=== PATIENT | female | born 1950 | race Caucasian/White ===

== ENCOUNTER 2022-06-27 15:33 | Inpatient (IN) | payer MEDICARE, OTHER ==
[~2022-06-27] VITALS: Ht 170.2 cm; Wt 66.2 kg
[~2022-06-27 15:33] MED LIST: ASPI81CH PO; ATOR40TA PO; CLOP75 PO; CONEST1.25 PO; HYDACE10B; LEVFLO500 PO; METO25 PO
[2022-06-27 15:52] LABS: Hematocrit 40.2 % (33.0-51.0); Hemoglobin 14.2 g/dL (11.5-16.0); Mean Corpuscular HGB 31.9 pg (26.0-34.0); Mean Corpuscular HGB Conc 35.3 g/dL (31.5-36.5); Mean Corpuscular Volume 90 fL (80-100); Mean Platelet Volume 9.3 fL (9.1-12.4); Platelet Count 425 K/mm3 (150-400); RDW Standard Deviation 42.8 fL (35.1-46.3); Red Blood Cell Count 4.45 M/mm3 (3.80-5.20); White Blood Cell Count 14.12 K/mm3 (4.00-11.30)
[2022-06-27 16:08] LABS: International Normalized Ratio 0.97; Prothrombin Time Results 10.2 Sec (9.7-11.5)
[2022-06-27 16:14] LABS: Anion Gap 5 mmol/L (6-16); Blood Urea Nitrogen 10 mg/dL (8-24); Bun/Creatinine Ratio 12.5 (12.0-20.0); CHOL/HDL RATIO 3.1; CO2, Blood 26 mmol/L (21-32); CPK Creatine Kinase 45 U/L (26-193); Calcium, Blood 8.4 mg/dL (8.5-10.1); Chloride, Blood 103 mmol/L (98-108); Cholesterol 152 mg/dL (50-200); Glomerular Filtration Rate 78 (60-); Glucose, Blood 146 mg/dL (70-99); HDL Cholesterol 49 mg/dL (>39); LDL/HDL RATIO 1.5; Low Density Lipoprotein Chol 73 mg/dL (0-110); Magnesium, Blood 2.2 mg/dL (1.6-2.4); Potassium, Blood 3.4 mmol/L (3.5-5.5); Sodium, Blood 134 mmol/L (136-145); Triglycerides 149 mg/dL (30-160); Very Low Density Lipoprot Chol 29 mg/dL (6-32)
[2022-06-27 16:20] LABS: Creatine Kinase MB 1.1 ng/mL (0.0-3.6); Creatine Kinase MB Index 2.4 (0.0-4.0)
--- NOTE | 2022-06-27 19:31 | NUR ---
PT ARRIVED TO ICU AT 1750 TRANSPORTED VIA BED FROM [facility] AFTER PRESENTING TO THE ER WITH STEMI. PT RECEIVED 1 STENT TO THE MID RCA. HAD TORSADES REQUIRING SHOCK AT 200j X2 AND THEN A BRIEF EPISODE OF 3RD DEGREE HEART BLOCK REQUIRING ATROPINE 0.5MG X1. PT ARRIVES IN A SINUS RHYTHM. NEURO: A/O X4 CARDIAC: SR, BP SUPPORTED BY LEVOPHED AT 2. EKG DONE 1 HOUR POST INTERVENTION. REVIEWED BY DR. UGALDE. RESP: LUNGS DIMINISHED AT BILAT BASES, CURRENT EVERY DAY SMOKER, HAS COPD, ON 2LNC, ENCOURAGED DEEP BREATHING ABLE. GI: CARDIAC DIET ORDERED, DENIES NAUSEA CURRENTLY BUT HAD NAUSEA POST PROCEDURE AND HAS HAD 8MG ZOFRAN IN ACCOUNTS EXECUTIVE. SIPS OF WATER GIVEN, PT SWALLOWS WELL. : VOIDS, 100ML VIA BEDPAN UPON ARRIVAL, PLACED PUREWICK AND EXPLAINED TO PT, SHE VERBALIZES UNDERSTANDING. PUREWICK TO LOW CONTINUOUS SUCTION. SKIN: DUSKY FINGERS (NORMAL PER PT). SLIGHTLY UNKEMPT. RIGHT FEM ANGIOSEAL OOZING, SITE SOFT AND NON-TENDER. NO HEMATOMA NOTED. DR. UGALDE AWARE OF OOZING. IV: PIV INFUSING LEVOPHED AND ANGIOMAX. ANGIOMAX RUNNING AT 1/[address] UGALDE AND IS TO BE D/C'D AT 1930. NS INFUSING AT 125ML/HR. ACT REPORTEDLY >500 PRIOR TO LEAVING ACCOUNTS EXECUTIVE. MULTIPLE FAMILY MEMBERS AT BEDSIDE. EX HERE, PT STATES IT IS OK THAT HE HAVE INFORMATION BUT IF EMERGENCY DECISIONS NEED TO BE MADE IN THE EVENT SHE CANNOT MAKE THEM, SHE WISHES THE GRANDCHILDREN TO BE COLLECTIVELY MAKING THOSE DECISIONS. GRANDCHILDREN AWARE AND ARE AGREEABLE. PT'S DAUGHTER IN 2021 AND SHE HAS NO LIVING SIBLINGS. PT VERBALIZES DESIRE TO BE FULL CODE.
--- NOTE | 2022-06-27 19:34 | NUR ---
ASSUME CARE PATIENT A&O, FAMILY AT BEDSIDE
[2022-06-27] MEDS ORDERED: LOSA25 PO (19:42)
[2022-06-27] MEDS ORDERED: HYDCHL25 PO (19:43)
[2022-06-27] MEDS ORDERED: B COMPLEX WITH1 EACH PO (19:44)
[2022-06-27] MEDS ORDERED: ALBU90OI INH (19:44)
[2022-06-27] MEDS ORDERED: IRON18 MG PO (19:45)
[2022-06-27 20:04] LABS: CHOL/HDL RATIO 2.7; Cholesterol 130 mg/dL (50-200); HDL Cholesterol 49 mg/dL (>39); LDL/HDL RATIO 1.4; Low Density Lipoprotein Chol 67 mg/dL (0-110); Triglycerides 72 mg/dL (30-160); Very Low Density Lipoprot Chol 14 mg/dL (6-32)
[2022-06-27] MEDS ORDERED: CONEST.625 PO (20:58)
--- NOTE | 2022-06-27 21:21 | NUR ---
CHEST TIGHTNESS REPORTED TO DR UGALDE, TROP [id number], AND CHEST TIGHTNESS. EKG DONE, NO CHANGE FROM 1830 EKG. SEE NEW ORDERS. LEVOPHED DOWN TO 0.5 MCQ/MIN
[2022-06-28 03:19] LABS: BASOPHILS ABSOLUTE AUTO 0.06 K/mm3 (0.00-0.23); BASOPHILS PERCENT AUTO 0 % (0-2); EOSINOPHILS ABSOLUTE AUTO 0.03 K/mm3 (0.00-0.68); EOSINOPHILS PERCENT AUTO 0 % (0-6); Hemoglobin 13.1 g/dL (11.5-16.0); IMMATURE GRAN ABSOLUTE AUTO 0.04 K/mm3 (0.00-0.10); IMMATURE GRAN PERCENT AUTO 0 % (0-1); LYMPHOCYTES ABSOLUTE AUTO 2.02 K/mm3 (0.84-5.20); LYMPHOCYTES PERCENT AUTO 13 % (21-46); MONOCYTES ABSOLUTE AUTO 1.82 K/mm3 (0.16-1.47); MONOCYTES PERCENT AUTO 12 % (4-13); Mean Corpuscular HGB 31.7 pg (26.0-34.0); Mean Corpuscular HGB Conc 35.4 g/dL (31.5-36.5); Mean Corpuscular Volume 90 fL (80-100); Mean Platelet Volume 9.2 fL (9.1-12.4); NEUTROPHILS ABSOLUTE AUTO 11.86 K/mm3 (1.96-9.15); NEUTROPHILS PERCENT AUTO 75 % (41-73); Platelet Count 359 K/mm3 (150-400); RDW Coefficient Variation 13.1 % (11.7-14.2); RDW Standard Deviation 42.9 fL (35.1-46.3); Red Blood Cell Count 4.13 M/mm3 (3.80-5.20); White Blood Cell Count 15.83 K/mm3 (4.00-11.30)
[2022-06-28 03:34] LABS: Bun/Creatinine Ratio 12.5 (12.0-20.0); Calcium, Blood 7.8 mg/dL (8.5-10.1); Creatinine, Blood 0.64 mg/dL (0.40-1.00); Potassium, Blood 3.4 mmol/L (3.5-5.5)
--- NOTE | 2022-06-28 05:27 | NUR ---
SHIFT SUMMARY PATIENT AWAKE MOST OF NIGHT. ADJUST SELF IN BED. R GROIN SITE STABLE. SALINE LOCKED. MEDICATED FOR ANXIETY/CHEST TIGHTNESS/INDIGESTION. EKG NO CHANGES. OFF LEVOPHED. URINE OUTPUT ADEQUATE. VSS ON O2 @ 6LNC UNABLE TO WEAN. REPORT TO ONCOMINIG RN.
--- NOTE | 2022-06-28 10:40 | NUR ---
Spiritual care visit conducted. Patient is lying in bed and alert. Patient's SO, Ward is bedside. Patient tells me about the medical evets that led to her transport and then the events and surgery that occurred upon arrival to the hospital. Patient talks about her Hinduism shukri and how her shukri has helped her overcome challenging trials in the past. I provide prayer, therapeutic listening and companionship as I assist patient deal with the fears and worries associated with her traumatic medical events. I will cotninue to remain available to patient and family.
--- NOTE | 2022-06-28 13:13 | NUR ---
PROVIDER UPDATE: Pt complaining of back pain and is requesting tylenol. Dr Turner notified.
--- NOTE | 2022-06-28 16:54 | NUR ---
SHIFT SUMMARY PT REMAINS A/O X4, SINUS RHYTHM, FREQ PVC'S AT TIMES, ASYMPTOMATIC, HR 80'S. BP WNL. ON 5L NC TO MAINTAIN O2 SAT > 92%, OCCASIONAL COUGH, NON-PRODUCTIVE. LUNGS COARSE AT TIMES, CLEARS WITH COUGH, DIMISHED IN BILATERAL BASES. NAUSEA THIS AM RELIEVED BY PRN ZOFRAN. POOR APPETITE BUT ATTEMPTING TO EAT A LITTLE AT EACH MEAL. VOIDS USING BSC, CLEAR YELLOW URINE. SKIN INTACT, DRY AND FLAKY. RIGHT FEM ACCESS SITE WITH DRY BLOODY DRAINAIGE ON DRESSING, HAS NOT INCREASED, SITE SOFT, NON-TENDER. BILAT PIV, BOTH SL, BOTH FLUSH WELL. MULTIPLE VISITORS TO BEDSIDE TODAY, ALL UPDATED ON PT CONDITION AND POC. PT HOPES TO BE D/C HOME TOMORROW. REPORT CALLED TO ELLA REYES TRANSFERRED TO PCU 19 VIA W/C ON 5L NC. ALL BELONGINGS SENT WITH PT.
--- NOTE | 2022-06-28 22:18 | NUR ---
ASSUMPTION OF CARE THIS RN ASSUMED CARE OF PATIENT AT 1900. REPORT TAKEN FROM ERIC BRADEN. PATIENT SHOWING NSR ON MONITOR WITH OCCASIONAL PVC'S, HR 70-80'S. BP STABLE. AFEBRILE. SPO2 >90% ON 5L VIA NC. THIS RN ATTEMPTED TO TITRATE PATIENT DOWN AT BEGINNING OF SHIFT, HOWEVER PATIENT DESATTED TO 86-87%. MD UGALDE TO BEDSIDE AFTER SHIFT CHANGE TO DISCUSS PLAN OF CARE AND NEW MEDICATIONS WITH PATIENT. MD UGALDE ASSESSED SITE WITH VERBAL ORDERS FOR THIS RN TO CHANGE DRESSING. THIS RN REMOVED AND REPLACED TEGADERM, AND CLEANED SITE WITH CHLORAHEXADINE. NO BLEEDING/OOZING NOTED AT RIGHT FEMORAL SITE. SMALL AMOUNT OF BRUISING TO RIGHT OF PUNCTURE SITE. NO FURTHER COMPLICATIONS NOTED. PATIENT DENIED TENDERNESS WITH PALPATION. PATIENT APPEARS ANXIOUS WITH TANGENTIAL SPEECH. PATIENT REQUIRING CONTINUAL EDUCATION REINFORCEMENT ABOUT MEDICATIONS, PLAN OF CARE, AND SMOKING CESSATION. PATIENT VERBALIZES UNDERSTANDING, THIS RN WILL CONTINUE TO PROVIDE EDUCATION AND GIVE PATIENT PRINTED INFORMATION ABOUT EDUCATION. PATIENT SBA/INDEPENDENT WITH ADLS. CALLS APPROPRIATELY. BED IN LOWEST POSITION AND CALL LIGHT WITHIN REACH.
[2022-06-29 04:24] LABS: Calcium, Blood 8.2 mg/dL (8.5-10.1); Creatinine, Blood 0.61 mg/dL (0.40-1.00); Potassium, Blood 3.8 mmol/L (3.5-5.5)
--- NOTE | 2022-06-29 04:30 | NUR ---
SHIFT SUMMARY NO ACUTE CHANGES OVERNIGHT. PATIENT DENIES CHEST PAIN/PRESSURE BUT CONTINUES TO ENDORSE OCCASIONAL TIGHTNESS WITH BREATHING. PATIENT ON 6L VIA NC CURRENTLY WHILE LYING FLAT AND SLEEPING WITH SPO2 >90%. BP STABLE WITH SBP 110-120 AT THIS TIME. SR WITH PVC'S NOTED ON TELE WITH HR 60-70'S. PATIENT IS ABLE TO MAKE NEEDS KNOWN. THIS RN CONTINUED TO EDUCATE THROUGHOUT THE NIGHT REGARDING SMOKING CESSATION AND CURRENT DISEASE PROCESSES, HOWEVER, PATIENT APPEARS UNINTERESTED IN EDUCATION. PRINTED INFORMATION PACKETS GIVEN ABOUT QUITING SMOKING AND CHANTIX. PATIENT'S RIGHT FEMORAL SITE DRESSING C/D/I, SMALL EXCCYMOSIS/HEMATOMA NOTED WITHOUT CHANGES OVERNIGHT; NO BLEEDING/OOZING. SLIGHT TENDERNESS WITH PALPATION. PATIENT INDEPENDENT WITH ADL'S. CALLING APPROPRIATELY AND ABLE TO MAKE NEEDS KNOWN. BED IN LOWEST POSITION AND CALL LIGHT WITHIN REACH. THIS RN WILL CONTINUE TO MONITOR UNTIL SHIFT CHANGE AT 0700.
--- NOTE | 2022-06-29 08:52 | NUR ---
Spiritual care visit. I met with patient's SO Ward in the hallway. He talks about how emotionally and physically draining it is to have a loved one in the hospital. He shares his thoughts about feeling so helpless he is to fix her and the situation. I provide anxiety containment and emotional support. Ward responded well and showed signs of peace about his role and the significance of his presence.
--- NOTE | 2022-06-29 10:46 | NUR ---
CARE ASSUMPTION THUS RN ASSUMED CARE AT 0700. VSS. SPO2 >90% ON 6L. THIS RN TITRATED TO 4L AT THE START OF MY SHIFT. PATIENT IS ALERT AND ORIENTED X4. PATIENT REPORTS NO PAIN. PATIENT REPORTS NO SHORTNESS OF BREATH. PATIENT REPORTS NO CHEST PAIN/PRESSURE. SEE SHIFT ASSESSMENT FOR FURTHER DETAILS. PATIENT RIGHT FEMORAL SITE IS CLEAN DRY AND INTACT. SMALL BRUISING AND FIRM SPOT. PATIENT EDUCATED ON SMOKING CESSATION. PATIENT UP IN ROOM AND PERFORMS OWN ADLS INDEPDENTLY. MD UGALDE AND MD GLASER TO SEE PATIENT TODAY. PLAN OF CARE IS UP TO DATE. CALL LIGHT WITHIN REACH.
--- NOTE | 2022-06-29 12:56 | NUR ---
UPDATE-INCREASE HEART RATE THE PATIENT SIGNIFCANT OTHER CAME OUT OF THE ROOM YELLING "SHES HAVING A HEART ATTACK" AT APPROX 1140 THIS RN AND PRESTON Fitzgerald RN RAN INTO THE ROOM. THE PATIENT WAS SITTING UP IN BED AND TALKING AND TELE MONITOR READING AT 154. PATIENT DENIED ANY CHEST PAIN/PRESSURE. PATIENT BLOOD PRESSURE WAS SLIGHTLY ELEVATED FROM EARLIER VITALS, SEE VITAL SIGN SECTION. SPO2 >90% ON 4L NC. PATIENT STATED "I FELT SWEATY AND THEN DIZZY AND THEN EVERYTHING WENT BLACK". PER THE SIGNIFCANT OTHER, HE STATED "HER EYES ROLLED INTO THE BACK OF HER HEAD AND SHE LOOKED LIKE SHE WAS HAVING A SEUIZURE.". EVERTON BRADEN CALLED MD UGALDE AND MD GLASER AND MADE THEM BOTH AWARE OF THE EVENT. PER TELE READING IT LOOKED LIKE VTACH. SEE STRIP IN CHART. PATIENT HAS HAD SEVERAL PVCS SINCE AND 1-3 BEAT OF VTACH. MD UGALDE STARTED THE PATIENT AMNIO DRIP. AMNIO DRIP IS INFUSING. SEE EMAR FOR FURTHER DETIALS.
--- NOTE | 2022-06-29 18:10 | NUR ---
SHIFT SUMMARY PATIENT NEURO REMAINS INTACT. VSS. NO ACUTE CHANGES. SEE PREVIOUS NOTES. PATIENT HAD MULTIPLE FAMILY MEMBERS IN TO VISIT THROUGHOUT THE DAY. PATIENT USES CALL LIGHT APPORPIATELY AND IS ABLE TO MAKE NEEDS KNOWN. CALL LIGHT WITHIN REACH AND BED IN LOWEST POSITION.
--- NOTE | 2022-06-30 04:58 | NUR ---
END OF SHIFT SUMMARY NO ARRYTHMIAS OVERNIGHT, PT RESTED WELL, UP TO BSC INDEPENDENTLY, AMIO GTT AT 0.5, VSS, AFEBRILE, NO ISSUES
--- NOTE | 2022-06-30 10:36 | NUR ---
CARE ASSUMPTION THIS RN ASSUMED CARE AT 0700. VSS. SPO2 >90% ON 3L NC. PATIENT IS ALERT AND ORIENTED X4. PATIENT REPORTS NO PAIN. PATIENT REPORTS NO SHORTNESS OF BREATH. PATIENT REPORTS NO CHEST PAIN/PRESSURE. PATIENT IS ABLE TO MAKE NEEDS KNOWN. PATIENT UPDATED ON PLAN OF CARE. SEE SHIFT ASSESSMENT. PATIENT IS INDEPDENT BUT IS EDUCATED ON USING CALL LIGHT BEFORE GETTING UP FOR SAFETY. CALL LIGHT WITHIN REACH
--- NOTE | 2022-06-30 11:15 | NUR ---
UPDATE MD UGALDE IN TO SEE PATIENT. PATIENT UPDATED ON ZOLL LIFE VEST. THIS RN EDUCATED THE PATIENT ON THE ZOLL VEST. PATIENT AND PATIENT SIGNIFICANT OTHER VERBALIZED UNDERSTANDING.
--- NOTE | 2022-06-30 17:51 | NUR ---
SHIFT SUMMARY PATIENT NUERO REMAINS INTACT. VSS. NO ACUTE CHANGES THIS SHIFT. PATIENT FAMILY HAS BEEN AT BEDSIDE DURING THIS RN SHIFT AND UPDATED ON PLAN OF CARE. CALL LIGHT WITHIN REACH.
--- NOTE | 2022-07-01 00:26 | NUR ---
0000-PT WOKE UP NAUSEATED AND DID EVENTUALLY VOMIT APPROX 100CC OF DARK ORANGE COLORED LIQUID WITH SOLID BITS OF FOOD IN IT, PT DESATTED TO 84, DIAPHORETIC AND DIZZY, DR SANTOS CALLED FOR ZOFRAN PRN, NO ECTOPY OR CARDIAC CHANGES NOTED, AFEBRILE, VSS ASIDE FROM NEEDING O2 INCREASED TO 4LPM TO MAINTAIN SAT OF 92, PT FULLY UPRIGHT WHEN VOMITTING OCCURED SO ASPIRATION VERY UNLIKELY
[2022-07-01 04:42] LABS: Bun/Creatinine Ratio 17.2 (12.0-20.0); Calcium, Blood 8.2 mg/dL (8.5-10.1); Creatinine, Blood 0.82 mg/dL (0.40-1.00); Potassium, Blood 3.5 mmol/L (3.5-5.5)
--- NOTE | 2022-07-01 05:16 | NUR ---
END OF SHIFT SOFT B/P, SB ON TELE, ONE EPISODE N/V, ZOFRAN ORDERED, O2 INCREASED TO 4LPM NC, WILL CONTINUE TO MONITOR UNTIL SHIFT CHANGE
--- NOTE | 2022-07-01 17:51 | NUR ---
SHIFT SUMMARY THIS RN ASSUMED CARE AT 0700. VSS. SPO2 >90% ON 4L NC. PATIENT IS ALERT AND ORIENTED X4 AND NEURO REMAINS UNCHANGED THIS SHIFT. PATIENT REPORTS DISCOMFORT IN BACK AND RATED IT AT A 4 ON A SCALE FROM 0-10, WITH 10 BEING THE WORST. PATIENT RECEIVED MED PER EMAR. SEE EMAR. PATIENT REPORTS NO SHORTNESS OF BREATH. PATIENT REPORTS NO CHEST PAIN/PRESSURE. SEE SHIFT ASSESSMENT FOR FURTHER DETIALS. MD UGALDE IN TO SEE PATIENT. PLAN IS FOR PATIENT TO HAVE AN ANGIO IN THE MORNING. NPO AT 0000. SEE ORDERS. PLAN OF CARE IS UP TO DATE. NO ACUTE CHANGES. CALL LIGHT WITHIN REACH AND BED IN LOWEST POSITION.
[2022-07-02 04:24] LABS: Bun/Creatinine Ratio 17.7 (12.0-20.0); Calcium, Blood 8.4 mg/dL (8.5-10.1); Creatinine, Blood 0.74 mg/dL (0.40-1.00); Potassium, Blood 3.5 mmol/L (3.5-5.5)
--- NOTE | 2022-07-02 06:17 | NUR ---
PT SLEPT WELL WITH PRN XANAX, MELATONIN AND TYLENOL, SB IN 40'S-50'S, 4LPM NC, AFEBRILE, PT REFUSED ATTEMPTS TO RESITE IV PROACTIVLEY AND R AC PIV INFILTRATED THIS AM WITH THE START OF NS ORDERED FOR PROCEDURE, PT NPO EXCEPT SIPS AND CHIPS UNTIL 0500, UO 1500CC, FAMILY AT BEDSIDE, VSS
--- NOTE | 2022-07-02 13:38 | NUR ---
Patient is lying flat in bed and recovering from a procedure and has 4 family memnbers present. Patient talks about the struggles of lying flat for 2 hours and the blessing that family bring as they distract from her back pain. I provide therapeutic listening for the patient and the family as they all have much to say while they work through the challenges of the day. I will continue to remain available to patient and family.
--- NOTE | 2022-07-02 17:49 | NUR ---
PT SUMMARY: PT HAD SECOND ANGIO DONE TODAY, NO INTERVENTION DONE PT WAS CLEAR. LEFT GORIN SITE WITH CLOSURE DEVICE IN PLACE, NO HEMATOMA OR BLEEDING NOTED AROUND THE SITE, LIZZY DRESSING IN PALCE. VITALS HRR 50-60'S, SATS ABOVE 90% ON 3L, SBP 115'S, AFEBRILE. PT DENIES CHEST PAIN/PRESSURE. NO NAUSEA, VOMITING OR DIAPHORESIS, NO VTACH EPISODES PER TELE. MULTIPLE FAMILY MEMBERS IN THE ROOM TO VISIT. PT WAITING FOR [employer] LIFE VEST TO POSSIBLY ARRIVED TOMORROW. PT WAS C/O BACK PAIN FROM LAYING FLAT MEDICATED WITH TYLENOL WITH RELIEF. NO OTHER ISSUES ENCOUNTERED. ABLE TO MAKE NEEDS KNOWN, CALL LIGHTS IN REACH
[2022-07-03 03:57] LABS: Magnesium, Blood 1.9 mg/dL (1.6-2.4)
[2022-07-03 04:02] LABS: Bun/Creatinine Ratio 15.2 (12.0-20.0); Calcium, Blood 7.8 mg/dL (8.5-10.1); Creatinine, Blood 0.72 mg/dL (0.40-1.00); Potassium, Blood 3.9 mmol/L (3.5-5.5)
--- NOTE | 2022-07-03 04:27 | NUR ---
SHIFT SUMMARY: PT ALERT AND ORIENTED X4, ABLE TO FOLLOW COMMANDS AND MAKE NEEDS KNOWN, ANXIOUS AT TIMES. HR STABLE, BP SOFT THROUGHOUT THE NIGHT, CALL PLACED TO MD AT 0400 FOR MAP <65, ORDERS TO RECHECK BP AND ADMINISTER 500ML NS BOLUS IF MAP REMAINS <65. AFEBRILE, SATURATIONS >96% ON 3L NC. RESPIRATIONS EVEN AND UNLABORED AT REST, STATES SHORTNESS OF BREATH WITH EXCERTION. PT COMPLAINING OF "FULLNESS" IN ABDOMINAL AREA AT START OF SHIFT. NO BM CHARTED FOR X3 DAYS, PROVIDED BOWEL CARE. PT WITH X2 EPISODES OF EMESIS, ZOFRAM PROVIDED WITH GOOD RESULTS. PT HAD SOFT STOOLS REST OF SHIFT. REMAINED AT BEDSIDE THROUGHOUT THE NIGHT. PLAN FOR LIFE VEST AND POSS D/C IN AM. BED IN LOW, CALL LIGHT IN REACH, WILL REPORT TO ONCOMING RN.
--- NOTE | 2022-07-03 05:03 | NUR ---
UPDATE: 500ML BOLUS INFUSING, PT TOLERATING WELL.
[2022-07-03 08:49] LABS: BASOPHILS ABSOLUTE AUTO 0.08 K/mm3 (0.00-0.23); BASOPHILS PERCENT AUTO 1 % (0-2); EOSINOPHILS ABSOLUTE AUTO 0.08 K/mm3 (0.00-0.68); EOSINOPHILS PERCENT AUTO 1 % (0-6); Hematocrit 30.6 % (33.0-51.0); Hemoglobin 10.8 g/dL (11.5-16.0); IMMATURE GRAN ABSOLUTE AUTO 0.05 K/mm3 (0.00-0.10); IMMATURE GRAN PERCENT AUTO 0 % (0-1); LYMPHOCYTES PERCENT AUTO 12 % (21-46); MONOCYTES ABSOLUTE AUTO 1.59 K/mm3 (0.16-1.47); MONOCYTES PERCENT AUTO 9 % (4-13); Mean Corpuscular HGB 32.2 pg (26.0-34.0); Mean Corpuscular HGB Conc 35.3 g/dL (31.5-36.5); Mean Corpuscular Volume 91 fL (80-100); Mean Platelet Volume 9.8 fL (9.1-12.4); NEUTROPHILS ABSOLUTE AUTO 13.08 K/mm3 (1.96-9.15); NEUTROPHILS PERCENT AUTO 77 % (41-73); Platelet Count 397 K/mm3 (150-400); RDW Coefficient Variation 13.2 % (11.7-14.2); RDW Standard Deviation 44.2 fL (35.1-46.3); Red Blood Cell Count 3.35 M/mm3 (3.80-5.20); White Blood Cell Count 16.98 K/mm3 (4.00-11.30)
--- NOTE | 2022-07-03 08:57 | NUR ---
AM NOTE: PATIENT ALERT AND ORIENTED X4. STATES SHE GETS N/T IN HANDS AND FEET WHEN COLD. PERRLA, WEARING GLASSES. UP TO BSC/BATHROOM WITH SBA. DENIES HEADACHE. ON 2L NASAL CANNULA SATING LOW-MID 90'S. STATES SHE IS ON ROOM AIR AT BASELINE. LUNGS SOUNDING COARSE AND DIM IN BASES. CHRONIC COUGH, DENIES SOB. TELE SHOWING SR WITH HR 60-70'S. BP ON SOFTER SIDE, SEE CHARTED VITALS. DENIES CHEST PAIN/PRESSURE. STATES SHE GETS "TWINGES THAT ZOOM THROUGH" HER LEFT ABDOMIN/CHEST AREA. DENIES PAIN WITH THESE "TWINGES" BUT STATES THEY ARE UNCOMFORTABLE. LEFT GROIN ACCESS SITE WNL. WAITING FOR LIFE VEST. NS INFUSING PER EMAR. PG TO LEFT UPPER ARM. PATIENT STATES SHE HAD UPPER LEFT QUADRANT SHARP SHOOTING PAIN LAST NIGHT ASSOCIATED WITH N/V THAT HAS NOW MOVED TO HER LEFT LOWER QUADRANT AND DIMINISHED IN PAIN. STATES SHE WAS CONSTIPATED AND HAD 2 BOWEL MOVEMENTS DESCRIBED "HARD ROCKS" LAST NIGHT FOLLOWED BY SOFT/LIQUID STOLLS THIS MORNING. PATIENT STATE SHE STARTED TO SEE "BLOOD TINGED MUCOUS" AFTER THE HARD BOWEL MOVEMENTS. PATIENT HAS HAD TWO LIQUID/GASSY BOWEL MOVEMENTS THIS AM WITH BRIGHT RED BLOOD. DR. COLE CALLED THIS AM TO UPDATE ON EVENTS THROUGHOUT THE NIGHT WELL AM BLOOD TINGED STOOL. ORDERS FOR THIS RN TO PLACE: CLEAR LIQUID DIET, PROVIDOR CONSULT WITH GI FOR 07/04, AND H&H RECHECK AT 1400. ORDERS IN PLACE. PATIENT AND UPDATED. WILL CONTINUE TO MONITOR.
--- NOTE | 2022-07-03 09:41 | NUR ---
NO GI ON BOARD TODAY 07/03. CONSULT TO BE PLACED TONIGHT FOR 07/04. DR. COLE BY TO SEE PATIENT. NO NEW ORDERS. PLOAN FOR H&H RECHECK AT 1400. THIS RN SPOKE WITH REP SHELBY FROM [employer]. SHELBY TO CHECK BACK IN TOMORROW MORNING/AFTERNOON TO FIT PATIENT. NOT ABLE TO FIT TODAY THEY CANNOT FIT MORE THAN 48 HOURS PRIOR TO DISCHARGE. UNSURE OF WHEN DISCHARGE WILL BE. WILL CONTINUE TO MONITOR.
--- NOTE | 2022-07-03 10:37 | NUR ---
DR. UGALDE BY TO SEE PATIENT. THIS RN UPDATED ON OVERNIGHT EVENTS OF BLOOD TINGED STOOLS WELL PLANS TO CONSULT GI TOMORROW ON 07/04. UPDATED ON THIS RN SPEAKING WITH SHELBY ARAYA AND PLANS TO CALL TOMORROW FOR POSSIBLE FITTING. ORDERS FOR THIS RN TO DC PO ASPIRIN. ORDERS IN PLACE.
[2022-07-03 14:02] LABS: Hematocrit 32.4 % (33.0-51.0); Hemoglobin 11.5 g/dL (11.5-16.0)
--- NOTE | 2022-07-03 16:09 | NUR ---
[facility] care visit conducted. Patient is lying in bed and alert. Patient tells me about the challenging night she had with blood pressure issues and bleeding. She is thankful to have those problems in the hospital where things can be addressed quickly and effectively. She talks at length about her family and how proud she is of all of them. She shares about her shukri and the juana her relationship with God bings her. She explains about the vest that she will have to wear when she will d/c from the hospital and her concerns about it. I provide therapeutic listening, levity and prayer. Patient responed well and showed signs of being uplifted in her shukri. I will continue to remain available to patient and family.
--- NOTE | 2022-07-03 17:33 | NUR ---
SHIFT SUMMARY: SEE PREVIOUS NOTES FOR UPDATES THROUGHOUT SHIFT. PATIENT REMAINS ALERT AND ORIENTED. NO CHANGES TO NEURO. REMAINS ON NASAL CANNULA AT 1.5L SATING MID 90'S. TELE CONTINUES TO SHOW SR. ABDOMINAL PAIN IMPROVED, BUT REMAINS TENDER IN LLQ. HGB IMPROVED. CONTINUES TO HAVE SMALL AMOUNTS OF BRIGHT RED BLOOD WITH BOWEL MOVEMENTS. BP STABLE. REMAINS ON CLEAR LIQUID DIET. PROVIDER CONSULT ORDER IN PLACE FOR GI ALTHOUGH NOT CALLED IN YET AT THIS TIME. DR. COLE TO DISCUSS WITH GI AND UPDATE THIS RN ON CALLING IN CONSULT. STRIP DEBURRER MOUNIKA UPDATED ON GI CONSULT PLAN. VANESSA REMAINS AT BEDSIDE AND UPDATED ON PLAN OF CARE. CALL LIGHT IN REACH. WILL CONTINUE TO MONITOR AND REPORT OFF TO ONCOMING RN.
--- NOTE | 2022-07-04 04:35 | NUR ---
SHIFT SUMMARY: PT REMAINS ALERT AND ORIENTED, ANXIOUS AT TIMES. BP AND HR STABLE, AFEBRILE, SATS >94% ON 2L NC. NO EPISODES OF BLOODY STOOLS THIS SHIFT. NO COMPLAINTS OF ABDOMINAL PAIN. IND TO AND FROM BEDSIDE CAMMODE. REMAINED AT BEDSIDE THROUGHOUT THE NIGHT. PT AND WITH QUESTIONS AT STRAT OF SHIFT REGARDING PREVIOUS ANGIOGRAM AND RISKS FOR IL, EDUCATION PROVIDED. GI TO CONSULT IN AM. BED IN LOW, CALL LIGHT IN REACH, WILL REPORT TO ONCOMING RN.
[2022-07-04 08:59] LABS: BASOPHILS ABSOLUTE AUTO 0.08 K/mm3 (0.00-0.23); BASOPHILS PERCENT AUTO 1 % (0-2); EOSINOPHILS ABSOLUTE AUTO 0.31 K/mm3 (0.00-0.68); EOSINOPHILS PERCENT AUTO 2 % (0-6); Hematocrit 35.3 % (33.0-51.0); Hemoglobin 12.1 g/dL (11.5-16.0); IMMATURE GRAN ABSOLUTE AUTO 0.06 K/mm3 (0.00-0.10); IMMATURE GRAN PERCENT AUTO 1 % (0-1); LYMPHOCYTES ABSOLUTE AUTO 1.74 K/mm3 (0.84-5.20); LYMPHOCYTES PERCENT AUTO 13 % (21-46); MONOCYTES ABSOLUTE AUTO 1.18 K/mm3 (0.16-1.47); MONOCYTES PERCENT AUTO 9 % (4-13); Mean Corpuscular HGB Conc 34.3 g/dL (31.5-36.5); Mean Corpuscular Volume 93 fL (80-100); Mean Platelet Volume 9.5 fL (9.1-12.4); NEUTROPHILS ABSOLUTE AUTO 9.92 K/mm3 (1.96-9.15); NEUTROPHILS PERCENT AUTO 75 % (41-73); Platelet Count 443 K/mm3 (150-400); RDW Coefficient Variation 13.7 % (11.7-14.2); RDW Standard Deviation 46.3 fL (35.1-46.3); Red Blood Cell Count 3.78 M/mm3 (3.80-5.20); White Blood Cell Count 13.29 K/mm3 (4.00-11.30)
[2022-07-04 09:21] LABS: Bun/Creatinine Ratio 10.5 (12.0-20.0); Calcium, Blood 8.2 mg/dL (8.5-10.1); Creatinine, Blood 0.67 mg/dL (0.40-1.00)
[2022-07-04] MEDS ORDERED: Amiodarone HCl200 MG PO (12:25)
[2022-07-04] MEDS ORDERED: METO25ER PO (12:26)
[2022-07-04] MEDS ORDERED: PANT40 PO (12:26)
[2022-07-04] MEDS ORDERED: SPIR25 PO (12:27)
[2022-07-04] MEDS ORDERED: TICA90TA PO (12:28)
--- NOTE | 2022-07-04 17:45 | NUR ---
PT SUMMARY: NO ACUTE CHANGE FOR THE SHIFT, AWAITING GI CONSULT NO REPORTED BLOODY STOOLS OR ANY SIGNS OF GI BLEED, PT HAD 2 EPISODES OF BM, FORMED WITH SOME LIQUID BROWN IN COLOR. PT HAS SOME ABD PAIN THIS MORNING BUT HAS RESOLVED, DIET RESUMED TO REGULAR DIET, PT TOLERATING WELL. LIFE VEST TO BE FITTED TONIGHT AT 1930, IF PT GETS CLEARED FROM GI BEFOREHAND PT WILLING TO DISCHARGE LATER TONIGHT, DISCHARGE ORDERS IN PLACE. NO OTHER COMPLAINS, PT HAS BEEN GOING TO THE [facility]. REMAINS AT THE BEDSIDE AWARE OF THE PLANS. VITALS HAS BEEN STABLE. WILL REPORT TO ONCOMING SHIFT.
--- NOTE | 2022-07-04 21:20 | NUR ---
DISCHARGE: DR. ROMERO AT BEDSIDE AT START OF SHIFT, CLEARED PT FOR DISCHARGE. ZO[facility] LIFE VEST REP ARRIVED AT 1940, PT FITTED AND EDUCATION PROVIDED. DISCHARGE INSTRUCTION REVIEWED, POWERGLIDE REMOVED. PT LEFT VIA WHEELCHAIR WITH ALL BELONGINGS.
== END 2022-07-04 21:33 | disposition home or self-care (01) | DRG 270 ==
LOC: ER 15:33 → ICUW 16:04 → PCU 16:04 → ICUW 19:03 → PCU 06-28 17:00
PROVIDERS: Emergency Medicine; Internal Medicine; ADMIT Internal Medicine Cardiovascular Disease
PROC: 027034Z Dilation of Coronary Artery, One Artery with Drug-eluting Intraluminal Device, Percutaneous Approach (ICD-10-PCS; principal; 2022-06-27)
PROC: 4A023N7 Measurement of Cardiac Sampling and Pressure, Left Heart, Percutaneous Approach (ICD-10-PCS; 2022-06-27)
PROC: B211YZZ Fluoroscopy of Multiple Coronary Arteries using Other Contrast (ICD-10-PCS; 2022-06-27)
PROC: B240ZZ3 Ultrasonography of Single Coronary Artery, Intravascular (ICD-10-PCS; 2022-06-27)
PROC: X2CY3T7 Extirpation of Matter from Great Vessel using Computer-aided Mechanical Aspiration, Percutaneous Approach, New Technology Group 7 (ICD-10-PCS; 2022-06-27)
PROC: 5A2204Z Restoration of Cardiac Rhythm, Single (ICD-10-PCS; 2022-06-27)
PROC: 5A12012 Performance of Cardiac Output, Single, Manual (ICD-10-PCS; 2022-06-27)
PROC: 3E033XZ Introduction of Vasopressor into Peripheral Vein, Percutaneous Approach (ICD-10-PCS; 2022-06-27)
PROC: B211YZZ Fluoroscopy of Multiple Coronary Arteries using Other Contrast (ICD-10-PCS; 2022-07-02)
PROC: 4A033BC Measurement of Arterial Pressure, Coronary, Percutaneous Approach (ICD-10-PCS; 2022-07-02)
DX: I21.19 ST elevation (STEMI) myocardial infarction involving other coronary artery of inferior wall (principal); I46.2 Cardiac arrest due to underlying cardiac condition; I49.01 Ventricular fibrillation; I49.02 Ventricular flutter; E87.1 Hypo-osmolality and hyponatremia; K92.2 Gastrointestinal hemorrhage, unspecified; I47.20 Ventricular tachycardia, unspecified; I47.21 Torsades de pointes; F41.9 Anxiety disorder, unspecified; R19.5 Other fecal abnormalities; I25.10 Atherosclerotic heart disease of native coronary artery without angina pectoris; J44.9 Chronic obstructive pulmonary disease, unspecified; E78.5 Hyperlipidemia, unspecified; I10 Essential (primary) hypertension; E87.6 Hypokalemia; I49.3 Ventricular premature depolarization; I95.9 Hypotension, unspecified; I34.0 Nonrheumatic mitral (valve) insufficiency; F19.10 Other psychoactive substance abuse, uncomplicated; K59.00 Constipation, unspecified; M77.9 Enthesopathy, unspecified; N95.9 Unspecified menopausal and perimenopausal disorder; E89.0 Postprocedural hypothyroidism; F17.210 Nicotine dependence, cigarettes, uncomplicated; E61.1 Iron deficiency; F12.10 Cannabis abuse, uncomplicated; Z79.51 Long term (current) use of inhaled steroids; Z98.890 Other specified postprocedural states; Z91.018 Allergy to other foods; Z95.5 Presence of coronary angioplasty implant and graft; Z90.710 Acquired absence of both cervix and uterus; Z79.82 Long term (current) use of aspirin; Z79.02 Long term (current) use of antithrombotics/antiplatelets; Z79.899 Other long term (current) drug therapy; Z79.2 Long term (current) use of antibiotics; Z99.81 Dependence on supplemental oxygen
CPT/HCPCS: 36415; 71045; 76937; 80048; 80061; 82550; 82553; 83036; 83605; 83735; 84484; 85014; 85018; 85025; 85027; 85347; 85610; 85730; 86850; 86900; 86901; 93005; 93010; 93306; 93454; 93458; 93571; 94760; 94762; 96374; 99152; 99153; 99285-25; A9270; C1725; C1729; C1751; C1757; C1760; C1769; C1874; C1887; C1894; C9113; C9606; J0153; J0282; J1644; J1650; J2250; J2270; J2370; J2405; J2720; J3010; J3246; J7030; J7040; J7050; J7060; Q9967

== ENCOUNTER → 2022-12-19 | Outpatient (CLI) | payer MEDICARE ==
[~2022-12-19] MED LIST changes: +ALBU90OI INH; +Amiodarone HCl200 MG PO; +B COMPLEX WITH1 EACH PO; +CONEST.625 PO; +HYDCHL25 PO; +IRON18 MG PO; +LOSA25 PO; +METO25ER PO; +ONDA4ODT MM; +PANT40 PO; +SPIR25 PO; +TICA90TA PO
[2022-12-20 12:56] LABS: Stool Occult Bld Immuno 1 Negative (NEGATIVE)
== END | disposition home or self-care (01) ==
LOC: LAB SHORT 09:40 → LAB 09:40
PROVIDERS: Physician Assistant Medical
DX: K62.5 Hemorrhage of anus and rectum (principal)
CPT/HCPCS: 82274

== ENCOUNTER 2023-01-08 16:07 | Emergency (ER) | payer MEDICARE ==
[~2023-01-08] VITALS: Ht 170.2 cm; Wt 65.3 kg
[~2023-01-08 16:07] MED LIST changes: -ONDA4 PO; -Percocet 5-3251 EACH PO
[2023-01-08 16:25] VITALS: BP 192/101
[2023-01-08] MEDS ORDERED: ONDA4 PO (20:53)
[2023-01-08] MEDS ORDERED: Percocet 5-3251 EACH PO ×2 (20:53→20:55)
[2023-01-08 21:00] LABS: Source, Urine Clean Catch
[2023-01-08 21:03] LABS: Appearance, Urine Clear (Clear); Bilirubin, Urine Neg (Neg); Blood, Urine 4+ (Neg); Color, Urine Yellow (P-Yellow); Glucose Qualitative, Urine Neg (Neg); Ketones, Urine Neg (Neg); Leukocyte Esterase, Urine Neg (Neg); Nitrite, Urine Neg (Neg); Protein, Urine 1+ (Neg); Urobilinogen, Urine NORM (Normal); pH, Urine 6.5 (5.0-8.0)
[2023-01-08 21:31] LABS: White Blood Cells, Urine 0-2 /hpf (0-5)
[2023-01-08 21:32] LABS: Bacteria Few /hpf; Squamous Epithelial Cells Few /hpf (Few)
== END 2023-01-08 21:45 | disposition home or self-care (01) ==
LOC: ER 16:07
PROVIDERS: Student in an Organized Health Care Education/Training Program
DX: M25.551 Pain in right hip (principal); F17.210 Nicotine dependence, cigarettes, uncomplicated; Z91.048 Other nonmedicinal substance allergy status; Z79.899 Other long term (current) drug therapy; Z79.82 Long term (current) use of aspirin
CPT/HCPCS: 81001; 99283; A9270

== ENCOUNTER → 2023-01-08 | Outpatient (CLI) | payer MEDICARE, OTHER ==
[~2023-01-08] MED LIST changes: +ONDA4 PO; +Percocet 5-3251 EACH PO
[2023-01-08 14:45] LABS: BASOPHILS PERCENT AUTO 1 % (0-2); EOSINOPHILS ABSOLUTE AUTO 0.14 K/mm3 (0.00-0.68); EOSINOPHILS PERCENT AUTO 1 % (0-6); Hematocrit 43.2 % (33.0-51.0); IMMATURE GRAN ABSOLUTE AUTO 0.01 K/mm3 (0.00-0.10); IMMATURE GRAN PERCENT AUTO 0 % (0-1); LYMPHOCYTES ABSOLUTE AUTO 2.32 K/mm3 (0.84-5.20); LYMPHOCYTES PERCENT AUTO 22 % (21-46); MONOCYTES ABSOLUTE AUTO 0.95 K/mm3 (0.16-1.47); MONOCYTES PERCENT AUTO 9 % (4-13); Mean Corpuscular HGB 32.3 pg (26.0-34.0); Mean Corpuscular HGB Conc 34.7 g/dL (31.5-36.5); Mean Corpuscular Volume 93 fL (80-100); Mean Platelet Volume 9.5 fL (9.1-12.4); NEUTROPHILS ABSOLUTE AUTO 6.82 K/mm3 (1.96-9.15); NEUTROPHILS PERCENT AUTO 66 % (41-73); Platelet Count 355 K/mm3 (150-400); RDW Coefficient Variation 14.4 % (11.7-14.2); RDW Standard Deviation 49.2 fL (35.1-46.3); Red Blood Cell Count 4.64 M/mm3 (3.80-5.20); White Blood Cell Count 10.34 K/mm3 (4.00-11.30)
[2023-01-08 15:00] LABS: Albumin, Blood 4.1 g/dL (3.4-5.0); Albumin/Globulin Ratio 1.1 (0.8-1.8); Bilirubin, Total 1.1 mg/dL (0.1-1.0); Bun/Creatinine Ratio 7.6 (12.0-20.0); Calcium, Blood 9.2 mg/dL (8.5-10.1); Creatinine, Blood 1.05 mg/dL (0.40-1.00); Globulin, Blood 3.9 g/dL (2.2-4.0); Potassium, Blood 3.8 mmol/L (3.5-5.5)
== END ==
LOC: LAB 14:39 → LAB SHORT 14:39
PROVIDERS: Physician Assistant
DX: R10.9 Unspecified abdominal pain (principal)
CPT/HCPCS: 80053; 83690; 85025; 85379

== ENCOUNTER 2024-04-20 14:30 | Observation (INO) | payer MEDICARE, OTHER ==
[~2024-04-20] VITALS: Ht 170.2 cm; Wt 59.0 kg
[~2024-04-20 14:30] MED LIST changes: +ONDA4 PO; +Percocet 5-3251 EACH PO
[2024-04-20] MEDS ORDERED: Ondansetron HCl 2 MG / ML 2ML Vial IV PRN (17:20)
[2024-04-20 18:12] LABS: BASOPHILS ABSOLUTE AUTO 0.11 K/mm3 (0.00-0.23); BASOPHILS PERCENT AUTO 1 % (0-2); EOSINOPHILS ABSOLUTE AUTO 0.09 K/mm3 (0.00-0.68); EOSINOPHILS PERCENT AUTO 1 % (0-6); Hematocrit 44.5 % (33.0-51.0); Hemoglobin 15.1 g/dL (11.5-16.0); IMMATURE GRAN ABSOLUTE AUTO 0.03 K/mm3 (0.00-0.10); IMMATURE GRAN PERCENT AUTO 0 % (0-1); LYMPHOCYTES PERCENT AUTO 23 % (21-46); MONOCYTES ABSOLUTE AUTO 0.81 K/mm3 (0.16-1.47); MONOCYTES PERCENT AUTO 8 % (4-13); Mean Corpuscular HGB 31.7 pg (26.0-34.0); Mean Corpuscular HGB Conc 33.9 g/dL (31.5-36.5); Mean Corpuscular Volume 94 fL (80-100); Mean Platelet Volume 9.7 fL (9.1-12.4); NEUTROPHILS ABSOLUTE AUTO 7.17 K/mm3 (1.96-9.15); NEUTROPHILS PERCENT AUTO 67 % (41-73); Platelet Count 343 K/mm3 (150-400); RDW Coefficient Variation 12.7 % (11.7-14.2); RDW Standard Deviation 43.9 fL (35.1-46.3); Red Blood Cell Count 4.76 M/mm3 (3.80-5.20); White Blood Cell Count 10.71 K/mm3 (4.00-11.30)
[2024-04-20 18:39] LABS: Albumin, Blood 3.5 g/dL (3.4-5.0); Albumin/Globulin Ratio 0.9 (0.8-1.8); Bilirubin, Total 0.8 mg/dL (0.1-1.0); Bun/Creatinine Ratio 11.2 (12.0-20.0); Creatinine, Blood 0.71 mg/dL (0.40-1.00); Potassium, Blood 3.5 mmol/L (3.5-5.5); Total Protein, Blood 7.5 g/dL (6.4-8.2)
[2024-04-20] MEDS ORDERED: Labetalol HCL 5 MG/ML 4ML Injection (Single Dose) IV ONE (20:50)
[2024-04-21] MEDS ORDERED: NS 1,000 ML IV SCH (02:45)
[2024-04-21] MEDS ORDERED: Ondansetron HCl 2 MG / ML 2ML Vial IV PRN (02:45)
[2024-04-21] MEDS ORDERED: FLU VACC TS2024-25(6MOS UP)/PF 45 MCG/0.5 ML SYRINGE IM SCH (02:45)
[2024-04-21 03:23] LABS: BASOPHILS ABSOLUTE AUTO 0.12 K/mm3 (0.00-0.23); BASOPHILS PERCENT AUTO 1 % (0-2); EOSINOPHILS ABSOLUTE AUTO 0.15 K/mm3 (0.00-0.68); EOSINOPHILS PERCENT AUTO 1 % (0-6); Hemoglobin 14.7 g/dL (11.5-16.0); IMMATURE GRAN ABSOLUTE AUTO 0.03 K/mm3 (0.00-0.10); IMMATURE GRAN PERCENT AUTO 0 % (0-1); LYMPHOCYTES ABSOLUTE AUTO 2.69 K/mm3 (0.84-5.20); LYMPHOCYTES PERCENT AUTO 25 % (21-46); MONOCYTES PERCENT AUTO 11 % (4-13); Mean Corpuscular HGB 31.7 pg (26.0-34.0); Mean Corpuscular HGB Conc 34.2 g/dL (31.5-36.5); Mean Corpuscular Volume 93 fL (80-100); Mean Platelet Volume 9.7 fL (9.1-12.4); NEUTROPHILS ABSOLUTE AUTO 6.48 K/mm3 (1.96-9.15); NEUTROPHILS PERCENT AUTO 61 % (41-73); Platelet Count 334 K/mm3 (150-400); RDW Coefficient Variation 12.8 % (11.7-14.2); RDW Standard Deviation 43.4 fL (35.1-46.3); Red Blood Cell Count 4.64 M/mm3 (3.80-5.20); White Blood Cell Count 10.67 K/mm3 (4.00-11.30)
[2024-04-21 03:51] LABS: Albumin, Blood 3.4 g/dL (3.4-5.0); Albumin/Globulin Ratio 0.9 (0.8-1.8); Bilirubin, Total 1.3 mg/dL (0.1-1.0); Bun/Creatinine Ratio 11.1 (12.0-20.0); Calcium, Blood 8.6 mg/dL (8.5-10.1); Creatinine, Blood 0.72 mg/dL (0.40-1.00); Globulin, Blood 3.6 g/dL (2.2-4.0); Potassium, Blood 3.1 mmol/L (3.5-5.5)
[2024-04-21 04:21] LABS: Source, Urine Clean Catch
[2024-04-21 04:23] LABS: Appearance, Urine Clear (Clear); Bilirubin, Urine Neg (Neg); Blood, Urine 3+ (Neg); Glucose Qualitative, Urine Neg (Neg); Ketones, Urine Neg (Neg); Leukocyte Esterase, Urine Neg (Neg); Nitrite, Urine Neg (Neg); Protein, Urine Neg (Neg); Specific Gravity, Urine 1.015 (1.003-1.022); Urobilinogen, Urine NORM (Normal)
[2024-04-21 04:42] LABS: U Amphetamine Screen Not Detected; U Barbituate Screen Not Detected; U Benzodiazapine Screen Not Detected; U Cannabinoids Screen DETECTED; U Cocaine Screen Not Detected; U Methadone Screen Not Detected; U Methamphetamine Screen Not Detected; U Opiates Screen Not Detected; U Phencyclidine Screen Not Detected
[2024-04-21 04:43] LABS: U Buprenorphine Screen Not Detected; U Oxycodone Screen Not Detected
[2024-04-21 04:44] LABS: Color, Urine Pale Yellow (P-Yellow)
[2024-04-21 04:45] LABS: Bacteria Few /hpf; Squamous Epithelial Cells Few /hpf (Few); White Blood Cells, Urine 0-2 /hpf (0-5)
[2024-04-21] MEDS ORDERED: Enoxaparin 40 MG/0.4 ML SYR SC SCH (09:00)
[2024-04-21] MEDS ORDERED: Losartan Potassium 25 MG Tab PO SCH (11:00)
[2024-04-21] MEDS ORDERED: CONEST.625 PO (13:45)
[2024-04-21] MEDS ORDERED: ATORVASTATIN CA80 M1 PO (13:45)
[2024-04-21] MEDS ORDERED: LOSA25 PO (13:46)
[2024-04-21 14:40] VITALS: BP 138/85
[2024-04-22] MEDS ORDERED: Atorvastatin 40 MG Tab PO SCH (09:00)
== END 2024-04-21 14:20 | disposition other institution (70) ==
LOC: ER 14:30 → ERHOLD 14:31
PROVIDERS: Emergency Medicine; ADMIT Internal Medicine
DX: I16.1 Hypertensive emergency (principal); I25.10 Atherosclerotic heart disease of native coronary artery without angina pectoris; I25.2 Old myocardial infarction; I11.0 Hypertensive heart disease with heart failure; I50.9 Heart failure, unspecified; E03.9 Hypothyroidism, unspecified; E78.5 Hyperlipidemia, unspecified; J44.9 Chronic obstructive pulmonary disease, unspecified; F17.210 Nicotine dependence, cigarettes, uncomplicated; Z95.5 Presence of coronary angioplasty implant and graft; Z88.8 Allergy status to other drugs, medicaments and biological substances; Z79.82 Long term (current) use of aspirin; Z79.899 Other long term (current) drug therapy
CPT/HCPCS: 71046; 71260; 80053; 81001; 83690; 83880; 84484; 85025; 85379; 93005; 93010; 93306; 99285-25; A9270; J7030; Q9967

== ENCOUNTER 2024-05-12 11:40 | Day surgery (SDC) | payer MEDICARE ==
[~2024-05-12] VITALS: Ht 170.2 cm; Wt 59.2 kg
[~2024-05-12 11:40] MED LIST changes: +ATORVASTATIN CA80 M1 PO; +Lactated Ringer's 1,000 ML IV ONE
[2024-05-12] MEDS ORDERED: HYDCHL50 (12:05)
[2024-05-12] MEDS ORDERED: [UNRECOGNIZED DRUG - OTHER] (12:05)
[2024-05-12] MEDS ORDERED: ASPI81CH (12:06)
[2024-05-12] MEDS ORDERED: NITR.4SL (12:08)
[2024-05-12] MEDS ORDERED: ALBU90OI (12:09)
[2024-05-12] MEDS ORDERED: Atacand8 MG (12:12)
[2024-05-12] MEDS ORDERED: propofoL 50 ML IV ONE (12:23)
[2024-05-12] MEDS ORDERED: Lactated Ringer's 1,000 ML IV ONE (12:35)
[2024-05-12 13:47] VITALS: BP 127/67
== END 2024-05-12 13:41 | disposition home or self-care (01) ==
LOC: ORSCSDS 11:40
PROVIDERS: Internal Medicine Gastroenterology
PROC: 0DB68ZX Excision of Stomach, Via Natural or Artificial Opening Endoscopic, Diagnostic (ICD-10-PCS; principal; 2024-05-12 13:15)
DX: R13.10 Dysphagia, unspecified (principal); R63.0 Anorexia; R10.13 Epigastric pain; I10 Essential (primary) hypertension; J44.9 Chronic obstructive pulmonary disease, unspecified; E78.5 Hyperlipidemia, unspecified; I25.2 Old myocardial infarction; I25.10 Atherosclerotic heart disease of native coronary artery without angina pectoris; Z79.82 Long term (current) use of aspirin; Z79.899 Other long term (current) drug therapy; Z87.891 Personal history of nicotine dependence
CPT/HCPCS: 88305; 88342; J2704; J7120